=== PATIENT | female | born 1940 | race Asian ===

== ENCOUNTER → 2020-05-18 | Outpatient (CLI) | payer OTHER, MEDICARE | END | disposition home or self-care (01) | LOC: US 13:26 | PROC: BT4JZZZ Ultrasonography of Kidneys and Bladder (ICD-10-PCS; principal; 2020-05-18) | DX: R31.9 Hematuria, unspecified (principal) ==

== ENCOUNTER → 2020-08-19 | Outpatient (CLI) | payer OTHER, MEDICARE | END | disposition home or self-care (01) | LOC: LB 10:04 | DX: E55.9 Vitamin D deficiency, unspecified (principal) ==